=== PATIENT | female | born 1950 | race Caucasian/White ===

== ENCOUNTER → 2019-01-24 09:09 | Outpatient (CLI) | payer MEDICARE, OTHER, SELFPAY ==
--- NOTE | 2019-01-24 | DI.MG.S_ITS ---
BILATERAL DIGITAL SCREENING MAMMOGRAM 3D/2D WITH CAD: 01/24/2019 CLINICAL: Routine screening. Comparison is made to exams dated: 08/12/2017 mammogram, 08/11/2016 mammogram, and 05/06/2015 mammogram - [facility]. The tissue of both breasts is heterogeneously dense. This may lower the sensitivity of mammography. Current study was also evaluated with a Computer Aided Detection (CAD) system. No significant masses, calcifications, or other findings are seen in either breast. Linear scar markers overlie the right breast and left upper chest. There has been no significant interval change. IMPRESSION: NEGATIVE There is no mammographic evidence of malignancy. A 1 year screening mammogram is recommended. This exam was interpreted at Station ID: [id number]. NOTE: For mammograms, a report in lay terms will be sent to the patient. Approximately 15% of breast malignancies will not be visualized mammographically. In the management of a palpable breast mass, a negative mammogram must not discourage biopsy of a clinically suspicious lesion. Electronically Signed By: Gavin Metz M.D. ecl/:01/31/2019 21:14:46 letter sent: Normal Exam ACR BI-RADS Category 1: Negative 3341F
== END ==
PROVIDERS: PCP Family Medicine; Visit Provider Family Medicine
DX: Z12.31 Encounter for screening mammogram for malignant neoplasm of breast (principal)
CPT/HCPCS: 77063; 77067

== ENCOUNTER → 2021-01-27 09:07 | Outpatient (CLI) | payer MEDICARE, OTHER, SELFPAY ==
--- NOTE | 2021-01-27 09:10 | DI.MRI.S_ITS ---
PROCEDURE: MR CERVICAL SPINE WO/W CON INDICATIONS: Cervical pain + PMH bladder cacer w/chemo treatmen TECHNIQUE: Noncontrast sagittal T1 spin echo and T2 fast spin echo, sagittal STIR, foraminal oblique sagittal T2 fast spin echo, axial gradient echo or T2 fast spin echo through the cervical spine. After the administration of contrast, axial and sagittal T1 spin echo with fat saturation through the cervical spine. COMPARISON: None. FINDINGS: Image quality: Suboptimal due to failure of fat suppression in the upper cervical spine to the level of C4 on postcontrast enhanced pulse sequences. Metallic artifact reduction protocols were utilized. Alignment and curvature: Straightening of the normal lordotic curvature. Marrow: Marrow is normal in overall signal, without suspicious enhancement. Multilevel degenerative endplate sclerosis and spurring. Diffuse facet arthropathy. Spinal cord: Visualized spinal cord has normal size and signal. No cerebellar tonsillar herniation. No abnormal intramedullary enhancement. Paraspinous soft tissues: No paravertebral masses or suspicious enhancement. C2-3: No canal narrowing. Mild bilateral foraminal stenosis. C3-4: Minimal canal narrowing. Mild to moderate bilateral foraminal narrowing C4-5: No canal stenosis. No left foraminal narrowing. Mild to moderate right foraminal narrowing with questionable nerve root compression. C5-6: Minimal canal narrowing. Severe right foraminal stenosis with nerve root compression. Mild left foraminal narrowing. C6-7: Mild canal narrowing. No right foraminal stenosis. Moderate left foraminal narrowing with nerve root compression. C7-T1: Mild canal narrowing. No definite foraminal stenosis. IMPRESSION: Straightening of the normal lordotic curvature. Diffuse cervical spondylosis and facet arthropathy, as detailed above by spinal level. No definite suspicious marrow signal change or enhancement to suggest metastatic disease however suboptimal evaluation due to failure of fat suppression artifact in the upper cervical spine. Dictated by: Surjit Murillo M.D. on 01/27/2021 at 11:22 Approved by: Surjit Murillo M.D. on 01/27/2021 at 11:31
== END ==
PROVIDERS: PCP Family Medicine; Referring Provider Physician Assistant; Visit Provider Physician Assistant
DX: M54.2 Cervicalgia (principal); M47.812 Spondylosis without myelopathy or radiculopathy, cervical region; Z85.51 Personal history of malignant neoplasm of bladder
CPT/HCPCS: 72156

== ENCOUNTER → 2021-10-15 12:07 | Outpatient (CLI) | payer MEDICARE, OTHER, SELFPAY ==
[2021-10-15 19:39] LABS: Add Manual Diff / Slide Review NO; Alanine Aminotransferase 22 IU/L (<35); Albumin Globulin Ratio 1.9 (1.0-2.8); Alkaline Phosphatase 51 U/L (38-126); Aspartate Aminotransferase 33 IU/L (14-36); Basophils Absolute Auto 0 /uL (0-100); Basophils Percent Auto 0.9 % (0-2); Bilirubin Total 0.4 mg/dL (0.2-1.3); Blood Urea Nitrogen 24 mg/dL (7-17); Calcium 10.4 mg/dL (8.4-10.2); Carbon Dioxide 21 mmol/L (22-32); Chloride 114 mmol/L (98-107); Cholesterol 306 mg/dL (140-199); Eosinophils Absolute Auto 100 /uL (0-450); Eosinophils Percent Auto 1.7 % (2-4); Estimated Glomerular Filt Rate > 60.0 mL/min (>60); Globulin 2.7 g/dL (1.7-4.1); Glucose 92 mg/dL (80-110); HEMOLYSIS < 15 (0-50); Hemoglobin 13.5 g/dL (12.0-16.0); Lymphocytes Absolute Auto 1600 /uL (1100-4500); Lymphocytes Percent Auto 30.4 % (25-40); Mean Corpuscular Hemoglobin 31.4 PG (26-34); Mean Corpuscular Volume 95.4 fL (80-100); Monocytes Absolute Auto 300 /uL (0-900); Monocytes Percent Auto 6.1 % (3-14); Neutrophils Absolute Auto 3200 /uL (1500-7000); Neutrophils Percent Auto 60.9 % (50-75); Platelet Count 290 X10^3/uL (150-400); Potassium 4.8 mmol/L (3.4-5.1); Red Cell Distribution Width 13.6 % (11.6-14.8); Sodium 146 mmol/L (137-145); Total Protein 7.7 g/dL (6.3-8.2); Triglycerides 76 mg/dL (35-150); White Blood Cell Count 5.2 X10^3/uL (4.5-11.0)
[2021-10-15 19:55] LABS: HDL Cholesterol 135 mg/dL (40-60); LDL Cholesterol Calculated 156 mg/dL (<100)
== END ==
PROVIDERS: PCP Family Medicine; Visit Provider Physician Assistant
DX: Z85.51 Personal history of malignant neoplasm of bladder (principal); E78.5 Hyperlipidemia, unspecified; J44.9 Chronic obstructive pulmonary disease, unspecified; R03.0 Elevated blood-pressure reading, without diagnosis of hypertension; Z12.11 Encounter for screening for malignant neoplasm of colon
CPT/HCPCS: 80053; 80061; 85025

== ENCOUNTER → 2021-10-21 08:02 | Outpatient (CLI) | payer MEDICARE, OTHER, SELFPAY ==
[2021-10-24 11:58] LABS: Fecal Immunochemical Test Negative (Negative)
== END ==
PROVIDERS: PCP Family Medicine; Referring Provider Physician Assistant; Visit Provider Physician Assistant
DX: E78.5 Hyperlipidemia, unspecified (principal); J44.9 Chronic obstructive pulmonary disease, unspecified; R03.0 Elevated blood-pressure reading, without diagnosis of hypertension; Z12.11 Encounter for screening for malignant neoplasm of colon; Z85.51 Personal history of malignant neoplasm of bladder
CPT/HCPCS: 82274

== ENCOUNTER → 2021-10-28 09:30 | Outpatient (CLI) | payer MEDICARE, OTHER, SELFPAY ==
--- NOTE | 2021-10-28 09:34 | DI.CT.S_ITS ---
PROCEDURE: CT CHEST ABD PEL W CON INDICATIONS: Follow up for bladder cancer TECHNIQUE: After the administration of oral and intravenous contrast, axial sections acquired from the supraclavicular neck to the pubic symphysis. Coronal and sagittal reformats were performed. For radiation dose reduction, the following was used: automated exposure control, adjustment of mA and/or kV according to patient size. COMPARISON:[facility], , CT THORAX/ABDOMEN/PELVIS WITH CONTRAST, 12/15/2017, 9:48. FINDINGS: Image quality: Excellent. CHEST: Lower Neck: No enlarged lymph nodes. Thyroid: Within normal limits. Axillae: No enlarged lymph nodes. Chest Wall: Unremarkable. Lungs and Airways: 4 mm left juxafissural nodule on series 2 image 235. This was present on prior exam and slightly less prominent. Pleura: No pneumothorax or pleural effusions. Heart: Heart size is normal. No pericardial effusion. Thoracic Vessels: The aorta and pulmonary arteries demonstrate normal size. Mediastinum and Isabela: No enlarged lymph nodes. Esophagus: No wall thickening. No hiatal hernia. ABDOMEN: Liver: Punctate right hepatic low attenuation focus is unchanged. Steatosis is noted. Gallbladder: Unremarkable. Biliary ducts: Unremarkable. Pancreas: Unremarkable. Spleen: Unremarkable. Adrenal Glands: Unremarkable. Kidneys and Ureters: Right renal cysts are unchanged. Stomach and Bowel: Stomach, small bowel loops, and colon are unremarkable. Peritoneum: No abnormal intraperitoneal fluid. No free air. Ventral Wall: No hernia. Abdominal Nodes: No retroperitoneal or mesenteric adenopathy by size criteria. Vessels: Aorta and inferior vena cava are normal in size. PELVIS: Pelvic Organs: Unremarkable. Bladder: Unremarkable. Pelvic Nodes: No enlarged lymph nodes. Miscellaneous: No inguinal hernias are seen. Bones: Unremarkable. IMPRESSION: 1. Stable interval exam. 2. Left juxtafissural nodule. Although it appears enlarged compared to prior, this likely represents distortion secondary to the fissure and is suspected to be stable. No new nodules are identified. Dictated by: Judy Garibay M.D. on 10/28/2021 at 14:45 Approved by: Judy Garibay M.D. on 10/28/2021 at 16:07
== END ==
PROVIDERS: Referring Provider Physician Assistant; Visit Provider Physician Assistant
DX: Z08 Encounter for follow-up examination after completed treatment for malignant neoplasm (principal); Z85.51 Personal history of malignant neoplasm of bladder; R91.1 Solitary pulmonary nodule; K76.0 Fatty (change of) liver, not elsewhere classified; N28.1 Cyst of kidney, acquired; Z98.890 Other specified postprocedural states
CPT/HCPCS: 71260; 74177

== ENCOUNTER → 2021-12-01 08:06 | Outpatient (CLI) | payer MEDICARE, OTHER, SELFPAY ==
[2021-12-01 20:08] LABS: Alanine Aminotransferase 22 IU/L (<35); Albumin 4.4 g/dL (3.5-5.0); Albumin Globulin Ratio 1.7 (1.0-2.8); Alkaline Phosphatase 56 U/L (38-126); Aspartate Aminotransferase 33 IU/L (14-36); BUN Creatinine Ratio 29.5 (6-22); Bilirubin Total 0.4 mg/dL (0.2-1.3); Blood Urea Nitrogen 23 mg/dL (7-17); Calcium 10.2 mg/dL (8.4-10.2); Carbon Dioxide 24 mmol/L (22-32); Chloride 109 mmol/L (98-107); Cholesterol 280 mg/dL (140-199); Estimated Glomerular Filt Rate > 60.0 mL/min (>60); Globulin 2.6 g/dL (1.7-4.1); Glucose 99 mg/dL (80-110); HEMOLYSIS < 15 (0-50); Sodium 137 mmol/L (137-145); Triglycerides 135 mg/dL (35-150)
[2021-12-01 20:15] LABS: HDL Cholesterol 118 mg/dL (40-60); LDL Cholesterol Calculated 135 mg/dL (<100)
== END ==
PROVIDERS: PCP Physician Assistant; Visit Provider Physician Assistant
DX: E78.5 Hyperlipidemia, unspecified (principal); E87.8 Other disorders of electrolyte and fluid balance, not elsewhere classified
CPT/HCPCS: 80053; 80061

== ENCOUNTER → 2022-09-24 08:40 | Outpatient (CLI) | payer MEDICARE, OTHER, SELFPAY ==
--- NOTE | 2022-09-24 | DI.MG.S_ITS ---
BILATERAL DIGITAL SCREENING MAMMOGRAM 3D/2D WITH CAD: 09/24/2022 CLINICAL: Routine screening. Comparison is made to exams dated: 01/24/2019 [facility] and 08/12/2017 mammogram - [facility]. Both breasts are heterogeneously dense, which may obscure small masses (category c / 51-75% glandular tissue). Current study was also evaluated with a Computer Aided Detection (CAD) system. No significant masses, calcifications, or other findings are seen in either breast. There has been no significant interval change. IMPRESSION: NEGATIVE There is no mammographic evidence of malignancy. A 1 year screening mammogram is recommended. Based on the Tyrer Cuzick model (a risk assessment model) the patient's lifetime risk is 5.5% and her 10 year risk is 4.1%. According to the ACR, ACS, and NCCN guidelines, an annual breast MRI exam along with mammogram is recommended if the patient's lifetime risk is 20% or greater. This exam was interpreted at Station ID: [id number]. NOTE: For mammograms, a report in lay terms will be sent to the patient. Approximately 15% of breast malignancies will not be visualized mammographically. In the management of a palpable breast mass, a negative mammogram must not discourage biopsy of a clinically suspicious lesion. Electronically Signed By: Kwadwo orr/ceci:09/24/2022 15:51:04 letter sent: Normal Exam ACR BI-RADS Category 1: Negative 3341F
== END ==
PROVIDERS: PCP Physician Assistant; Referring Provider Physician Assistant; Visit Provider Physician Assistant
DX: Z12.31 Encounter for screening mammogram for malignant neoplasm of breast (principal)
CPT/HCPCS: 77063; 77067

== ENCOUNTER → 2023-09-29 08:42 | Outpatient (CLI) | payer MEDICARE, OTHER, SELFPAY ==
--- NOTE | 2023-09-29 | DI.MG.S_ITS ---
BILATERAL DIGITAL SCREENING MAMMOGRAM 3D/2D WITH CAD: 09/29/2023 CLINICAL: Routine screening. Comparison is made to exams dated: 09/24/2022 mammogram, 01/24/2019 mammogram - [facility], and 08/12/2017 mammogram - [facility]. There are scattered areas of fibroglandular density in both breasts (category b / 25%-50% glandular tissue). Current study was also evaluated with a Computer Aided Detection (CAD) system. There are benign post operative findings in the right breast. No significant masses, calcifications, or other findings are seen in either breast. There has been no significant interval change. IMPRESSION: BENIGN There is no mammographic evidence of malignancy. A 1 year screening mammogram is recommended. Based on the Tyrer Cuzick model (a risk assessment model) the patient's lifetime risk is 3.4% and her 10 year risk is 2.8%. According to the ACR, ACS, and NCCN guidelines, an annual breast MRI exam along with mammogram is recommended if the patient's lifetime risk is 20% or greater. This exam was interpreted at Station ID: [id number]. NOTE: For mammograms, a report in lay terms will be sent to the patient. Approximately 15% of breast malignancies will not be visualized mammographically. In the management of a palpable breast mass, a negative mammogram must not discourage biopsy of a clinically suspicious lesion. Electronically Signed By: Ashley martins/ceci:09/29/2023 15:29:41 letter sent: Normal Exam ACR BI-RADS Category 2: Benign Finding(s) 3342F
== END ==
PROVIDERS: PCP Physician Assistant; Referring Provider Physician Assistant; Visit Provider Physician Assistant
DX: Z12.31 Encounter for screening mammogram for malignant neoplasm of breast (principal)
CPT/HCPCS: 77063; 77067

== ENCOUNTER → 2023-11-10 13:25 | Outpatient (CLI) | payer MEDICARE, OTHER, SELFPAY ==
[2023-11-10 14:20] LABS: Creatine Kinase 43 U/L (30-135)
== END ==
PROVIDERS: PCP Physician Assistant; Referring Provider Nurse Practitioner Adult Health; Visit Provider Nurse Practitioner Adult Health
DX: Z85.51 Personal history of malignant neoplasm of bladder (principal)
CPT/HCPCS: 36415; 82550

== ENCOUNTER → 2023-11-12 10:50 | Outpatient (CLI) | payer MEDICARE, OTHER, SELFPAY ==
--- NOTE | 2023-11-12 10:51 | DI.CT.S_ITS ---
PROCEDURE: CT CHEST ABD PEL W CON INDICATIONS: bladder cancer surveillance TECHNIQUE: After the administration of oral and intravenous contrast, axial sections acquired from the supraclavicular neck to the pubic symphysis. Coronal and sagittal reformats were performed. For radiation dose reduction, the following was used: automated exposure control, adjustment of mA and/or kV according to patient size. COMPARISON: [facility], [facility], CT THORAX/ABDOMEN/PELVIS WITH CONTRAST, 12/15/2017, 9:48. [facility], CT, CT CHEST ABD PEL W CON, 10/28/2021, 10:24. FINDINGS: Image quality: Excellent. CHEST: Lower Neck: No enlarged lymph nodes. Thyroid: Within normal limits. Axillae: No enlarged lymph nodes. Chest Wall: No suspicious lesion. Lungs and Airways: Moderate to severe emphysematous change. Mild bronchiectasis. Central airways are clear. No new or enlarging pulmonary nodules. Left lower lobe pulmonary nodule measuring 0.5 cm, (3/227), not significantly changed. No mass. Pleura: No pneumothorax or pleural effusions. Heart: Heart size is normal. No pericardial effusion. Thoracic Vessels: The aorta and pulmonary arteries demonstrate normal size. Mediastinum and Isabela: No enlarged lymph nodes. Esophagus: No wall thickening. No hiatal hernia. ABDOMEN: Liver: No solid mass. Probable small cyst or hemangioma in the right liver is unchanged. Gallbladder: No radiopaque gallstones or wall thickening. Biliary ducts: No biliary dilation. Pancreas: No ductal dilation. Spleen: Size is within normal limits. Adrenal Glands: No adrenal nodules. Kidneys and Ureters: No hydronephrosis. No solid mass. No complex renal cystic lesion which requires follow up. Stomach and Bowel: Normal colonic caliber, without significant wall thickening. Diverticulosis. The appendix is not identified. Multiple clips. Peritoneum: No abnormal intraperitoneal fluid. No free air. Ventral Wall: No hernia. Abdominal Nodes: No retroperitoneal or mesenteric adenopathy by size criteria. Vessels: Aorta and inferior vena cava are normal in size. PELVIS: Pelvic Organs: Uterus is absent. Bladder: Absent. Pelvic Nodes: No enlarged lymph nodes. Miscellaneous: No inguinal hernias are seen. Bones: No suspicious osseous lesion. IMPRESSION: 1. No new or enlarging pulmonary nodules. 2. No mass or adenopathy. No free fluid. Dictated by: French Medina M.D. on 11/12/2023 at 14:58 Approved by: French Medina M.D. on 11/12/2023 at 15:15
[2023-11-12 11:24] LABS: Estimated Glomerular Filt Rate > 60 mL/min (>60)
== END ==
PROVIDERS: Radiology Diagnostic Radiology; PCP Physician Assistant; Referring Provider Nurse Practitioner Adult Health; Visit Provider Nurse Practitioner Adult Health
DX: Z85.51 Personal history of malignant neoplasm of bladder (principal); Z08 Encounter for follow-up examination after completed treatment for malignant neoplasm; R91.1 Solitary pulmonary nodule
CPT/HCPCS: 36415; 71260; 74177; 82565; Q9967

== ENCOUNTER → 2024-11-06 08:33 | Outpatient (CLI) | payer MEDICARE, OTHER, SELFPAY ==
--- NOTE | 2024-11-06 08:34 | DI.MG.S_ITS ---
BILATERAL DIGITAL SCREENING MAMMOGRAM 3D/2D WITH CAD: 11/06/2024 CLINICAL: Routine screening. Comparison is made to exams dated: 09/29/2023 mammogram, 09/24/2022 mammogram, and 01/24/2019 mammogram - [facility]. There are scattered areas of fibroglandular density (category b / 25%-50% glandular tissue). Current study was also evaluated with a Computer Aided Detection (CAD) system. There are benign post operative findings in the right breast. No significant masses, calcifications, or other findings are seen in either breast. There has been no significant interval change. IMPRESSION: BENIGN There is no mammographic evidence of malignancy. A 1 year screening mammogram is recommended. Based on the Tyrer Cuzick model (a risk assessment model) the patient's lifetime risk is 2.9% and her 10 year risk is 2.9%. According to the ACR, ACS, and NCCN guidelines, an annual breast MRI exam along with mammogram is recommended if the patient's lifetime risk is 20% or greater. This exam was interpreted at Station ID: [id number]. NOTE: For mammograms, a report in lay terms will be sent to the patient. Approximately 15% of breast malignancies will not be visualized mammographically. In the management of a palpable breast mass, a negative mammogram must not discourage biopsy of a clinically suspicious lesion. Electronically Signed By: Rodríguez sim/ceci:11/06/2024 17:07:14 letter sent: Normal Exam ACR BI-RADS Category 2: Benign
== END ==
LOC: MAMMO 08:34
PROVIDERS: PCP Physician Assistant; Referring Provider Physician Assistant; Visit Provider Physician Assistant
DX: Z12.31 Encounter for screening mammogram for malignant neoplasm of breast (principal)
CPT/HCPCS: 77063; 77067

== ENCOUNTER 2025-01-24 10:38 | Emergency (ER) | payer MEDICARE, OTHER, SELFPAY ==
[2025-01-24 10:55] VITALS: BP 186/83; PULSE 72; RESP 16; TEMP 36.7; O2SAT 99; BMI 16.6
--- NOTE | 2025-01-24 11:03 | DI.RAD.S_ITS ---
PROCEDURE: XR ELBOW LT MIN 3V INDICATIONS: fall 01/12 , increasing pain TECHNIQUE: 3 views of the elbow were acquired. COMPARISON: None. FINDINGS: Bones: No fractures or dislocations. No suspicious bony lesions. Soft tissues: No elbow joint effusion. No suspicious soft tissue calcifications. IMPRESSION: No acute elbow fracture or dislocation. No significant joint effusion. Dictated by: Carlton Harvey M.D. on 01/24/2025 at 11:39 Approved by: Carlton Harvey M.D. on 01/24/2025 at 11:40
--- NOTE | 2025-01-24 11:03 | DI.RAD.S_ITS ---
PROCEDURE: XR SHOULDER LT MIN 2V INDICATIONS: fall 01/12 , increasing pain TECHNIQUE: 3 views of the shoulder were acquired. COMPARISON: [facility], CR, XR SHOULDER 2+ VIEWS LEFT, 01/11/2025, 22:38. [facility] CR, XR SHOULDER RT MIN 2V, 05/12/2023, 15:20. FINDINGS: Bones: As present on the previous images from 2 weeks ago, there is a comminuted head and neck fracture of the proximal left humerus. Alignment appears grossly unchanged. Soft tissues: No suspicious soft tissue calcifications. IMPRESSION: Unchanged appearance of comminuted head and neck fracture of the proximal left humerus. Dictated by: Cr Blanco M.D. on 01/24/2025 at 11:55 Approved by: Cr Blanco M.D. on 01/24/2025 at 11:56
--- NOTE | 2025-01-24 13:47 | ED_ITS ---
HPI - Extremity Injury (Upper) <Lourdes Luis PA-C - Last Filed: 01/24/25 14:28> General Chief Complaint: Extremity Injury, Upper Stated Complaint: Neck pain , going down her left arm Time Seen by Provider: 01/24/25 13:40 Source: patient Mode of arrival: Family Vehicle History of Present Illness HPI narrative: Ms. Kimberly Dover is a pleasant 74-year-old female who presents to the emergency department for persistent left shoulder pain after a left shoulder fracture that occurred 01/11/2025. Patient states she had a fall and fractured her left proximal humerus on 01/11/2025, was seen on [facility] and given a sling and advised to follow up with Orthopedics. Reports that she has not yet able to follow up with Orthopedics however she presents today due to persistent pain of the left shoulder, left elbow, and sensation of tingling in the hand occasionally. She has not wearing the sling at this time but reports that she has been wearing the sling. She is taking ibuprofen and Tylenol for pain, she felt nauseous when she took hydrocodone so she has not been taking that. She denies any new injuries, no difficulty with range of motion or strength of the left hand. Related Data Previous Rx's Medication Instructions Recorded estradiol 0.01% (0.1 mg/gram) See Rx Instructions .Route 06/03/23 vaginal cream .COMPLEX #42.5 grams trazodone 50 mg tablet 25 - 50 mg (0.5 - 1 x 50 mg) PO 02/07/24 ONCE PM PRN for insomnia #90 tabs lidocaine 5 % topical patch 1 patch topical DAILY #15 ea 01/24/25 (Lidoderm) ondansetron 4 mg disintegrating 4 mg PO Q8H PRN nausea and 01/24/25 tablet vomiting #14 tabs Allergies Allergy/AdvReac Type Severity Reaction Status Date / Time Penicillins [PENICILLINS] Allergy Intermediate hives Verified 01/24/25 10:54 Sulfa (Sulfonamide Allergy Unknown Verified 01/24/25 10:54 Antibiotics) [SULFA (SULFONAMIDE ANTIBIOTICS)] Review of Systems <Lourdes Luis PA-C - Last Filed: 01/24/25 14:28> Review of Systems ROS Unobtainable: All systems reviewed & are unremarkable except as noted in HPI and below Patient History <Lourdes Luis PA-C - Last Filed: 01/24/25 14:28> Medical History Retained suture 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 Well-developed patient, in no acute distress. HEAD: Atraumatic. Normocephalic. NECK: Trachea midline. Cervical ROM intact. No midline cervical tenderness. CARDIOVASCULAR: Regular rate RESPIRATORY: Nonlabored respirations. Speaking in clear, full sentences. EXTREMITIES: Tenderness to palpation of left shoulder, ecchymosis of dorsal left hand. Strong bilateral 2+ radial pulses. Sensation intact to light touch and strength intact in the distribution of the median, ulnar, radial nerves bilaterally. Limited abduction of left shoulder secondary to pain. NEURO: AOx3. Clear speech. SKIN: No rash or erythema of visible areas, There is ecchymosis of the left dorsal hand. Initial Vital Signs Initial Vital Signs: Vital Signs Temperature 98.0 F 01/24/25 10:55 Pulse Rate 72 01/24/25 10:55 Respiratory Rate 16 01/24/25 10:55 Blood Pressure 186/83 H 01/24/25 10:55 Pulse Oximetry 99 01/24/25 10:55 Oxygen Delivery Method Room Air 01/24/25 10:55 <Shanelle Forman DO - Last Filed: 01/24/25 18:38> Initial Vital Signs Initial Vital Signs: Vital Signs Temperature 98.0 F 01/24/25 10:55 Pulse Rate 72 01/24/25 10:55 Respiratory Rate 16 01/24/25 10:55 Blood Pressure 186/83 H 01/24/25 10:55 Pulse Oximetry 99 01/24/25 10:55 Oxygen Delivery Method Room Air 01/24/25 10:55 Course <Lourdes Luis PA-C - Last Filed: 01/24/25 14:28> Orders Ordered: ED Orders 01/24/25 11:03 XR elbow LT min 3V Stat XR shoulder LT min 2V Stat Vital Signs Vital signs: Vital Signs - 8 hr 01/24/25 10:55 01/24/25 14:10 01/24/25 14:14 Temperature 98.0 F 98 F Pulse Rate 72 72 72 Respiratory Rate 16 16 14 Blood Pressure 186/83 H 138/72 138/72 Pulse Oximetry 99 98 98 Oxygen Delivery Method Room Air Room Air Room Air <Shanelle Forman DO - Last Filed: 01/24/25 18:38> Orders Ordered: ED Orders 01/24/25 11:03 XR elbow LT min 3V Stat XR shoulder LT min 2V Stat Vital Signs Vital signs: Vital Signs - 8 hr 01/24/25 10:55 01/24/25 14:10 01/24/25 14:14 Temperature 98.0 F 98 F Pulse Rate 72 72 72 Respiratory Rate 16 16 14 Blood Pressure 186/83 H 138/72 138/72 Pulse Oximetry 99 98 98 Oxygen Delivery Method Room Air Room Air Room Air MDM - Extremity Injury (Upper) <Lourdes Luis PA-C - Last Filed: 01/24/25 14:28> Medical Records Attestation: I reviewed the patient's medical records. Imaging Data Left Shoulder X-Ray: Radiologist's Impression: PROCEDURE: XR SHOULDER LT MIN 2V INDICATIONS: fall 01/12 , increasing pain TECHNIQUE: 3 views of the shoulder were acquired. COMPARISON: [facility], CR, XR SHOULDER 2+ VIEWS LEFT, 01/11/2025, 22:38. [facility] CR, XR SHOULDER RT MIN 2V, 05/12/2023, 15:20. FINDINGS: Bones: As present on the previous images from 2 weeks ago, there is a comminuted head and neck fracture of the proximal left humerus. Alignment appears grossly unchanged. Soft tissues: No suspicious soft tissue calcifications. IMPRESSION: Unchanged appearance of comminuted head and neck fracture of the proximal left humerus. Left Elbow X-Ray: Radiologist's Impression: PROCEDURE: XR ELBOW LT MIN 3V INDICATIONS: fall 01/12 , increasing pain TECHNIQUE: 3 views of the elbow were acquired. COMPARISON: None. FINDINGS: Bones: No fractures or dislocations. No suspicious bony lesions. Soft tissues: No elbow joint effusion. No suspicious soft tissue calcifications. IMPRESSION: No acute elbow fracture or dislocation. No significant joint effusion. MDM Narrative Medical decision making narrative: 74-year-old female who presents to the emergency department for persistent left shoulder pain after a left shoulder fracture that occurred 01/11/2025. Differential diagnosis includes but is not limited to left shoulder fracture, cervical strain, brachial plexus injury, etc. physical exam patient is in no acute distress, nontoxic appearing, vital signs within normal limits. She does have ecchymosis of the left dorsal hand which she reports is improving from the injury. She continues to have pain and occasional tingling of the left hand, and pain is also starting to go up the neck which she believes is from the sling pulling on her neck. X-ray of the left shoulder and elbow were obtained in triage revealing an unchanged appearance of her proximal left humerus fracture, and no fracture of the left elbow. Bilateral upper extremities are neurovascularly intact with strong pulses and strength and sensation intact of the median, ulnar, radial nerve distribution. I suspect patient's symptoms are related to her fracture and I stressed the importance of her continuing to wear her sling and to follow up with Orthopedics. I did offer to provide her with a new/ different sling however she is requesting immediate [place] [facility] [place] [facility] She was prescribed Zofran to take if needed for her home hydrocodone pain medication, in addition to Lidoderm. ED return precautions discussed. She is stable for discharge home, provided with orthopedic follow up. Discharge Plan Departure Patient Disposition: Home Clinical Impression: Closed left humeral fracture Qualifiers: Encounter type: initial encounter Humerus Location: proximal Fracture morphology: other fracture Fracture alignment: nondisplaced Qualified Code(s): S42.295A - Other nondisplaced fracture of upper end of left humerus, initial encounter for closed fracture Instructions: DI for Shoulder Fracture Activity Restrictions/Additional Instructions: Thank you for coming to the emergency department. Today you were evaluated for worsening pain after fracturing her left shoulder. Repeat x-rays were performed which revealed normal left elbow and left shoulder revealed Unchanged appearance of comminuted head and neck fracture of the proximal left humerus. it is very important to continue wearing a left arm sling as much as possible and follow up with [facility] for further evaluation. You can call to schedule an appointment at [phone]. Please take Ibuprofen (Motrin/Advil) or Acetaminophen (Tylenol) for pain. These are available over the counter. You may take Ibuprofen 600 mg every 8 hours with food for pain. You may also take Acetaminophen 650 mg every 4-6 hours for pain. Do not exceed 3000 mg of Tylenol a day as this can cause liver damage. Do not drink alcohol with either of these medications. Please use RICE therapy for your pain in addition to ibuprofen/acetaminophen. Rest the painful area. Ice the area of pain/swelling for at least 15 minutes, 4x a day. Compress the area of swelling using a brace, wrap, or splint if applied. Elevate the painful or swollen extremity by supporting it above the level of the heart with pillows when sitting or laying. I have prescribed you nausea medicine if needed to use with your prior prescription for hydrocodone. I have also prescribed lidocaine patches that you can apply directly under the strap of the sling to help with sling pain. Please follow up with your primary care doctor within the next 2-3 days for ER follow-up. (If you do not have a PCP you can call [phone]. to schedule an appointment with an [facility] Primary Care Provider) IF YOU DEVELOP ANY NEW OR WORSENING SYMPTOMS, RETURN TO THE ER! Please read the attached instructions, they highlight more specific treatments and interventions for you at home. Thank you for letting me participate in your care, Lourdes Luis PA-C Prescriptions: New ondansetron 4 mg tablet,disintegrating 4 mg PO Q8H PRN (Reason: nausea and vomiting) Qty: 14 0RF lidocaine [Lidoderm] 5 % adhesive patch,medicated 1 patch topical DAILY Qty: 15 0RF Rx Instructions: leave on most painful area for up to 12 hrs No Action trazodone 50 mg tablet 25 - 50 mg PO ONCE PM PRN (Reason: for insomnia) Qty: 90 3RF estradiol 0.01 % (0.1 mg/gram) cream See Rx Instructions .ROUTE .COMPLEX Qty: 42.5 1RF Rx Instructions: topically 0.5gm to vulvar tissue; 2 x weekly Referrals: Divya Vargas PA-C [Primary Care Provider] - Stand Alone Forms: Patient Portal/API/Survey ED Sign-out <Shanelle Forman DO - Last Filed: 01/24/25 18:38> Cosign ED Attending Cosignature Attestation: I was available for consultation.
[2025-01-24 14:10] VITALS: BP 138/72; PULSE 72; RESP 16; TEMP 36.6; O2SAT 98
--- NOTE | 2025-01-24 14:12 | PC.NURSE ---
Patient was assessed by the provider and cleared for Discharge. The patient had made several comments about needing to leave to catch a ferry at 1410. She made a statement about sleeping in her car if she misses it.
[2025-01-24 14:14] VITALS: BP 138/72; PULSE 72; RESP 14; O2SAT 98
== END 2025-01-24 14:21 | disposition home or self-care (01) ==
PROVIDERS: Emergency Provider Physician Assistant; PCP Physician Assistant
DX: S42.212A Unspecified displaced fracture of surgical neck of left humerus, initial encounter for closed fracture (principal); S42.292A Other displaced fracture of upper end of left humerus, initial encounter for closed fracture; X58.XXXA Exposure to other specified factors, initial encounter
CPT/HCPCS: 73030; 73080; 99282; 99283

== ENCOUNTER → 2025-03-03 09:20 | Outpatient (CLI) | payer MEDICARE, OTHER, SELFPAY ==
--- NOTE | 2025-03-03 09:22 | DI.MRI.S_ITS ---
PROCEDURE: MR CERVICAL SPINE WO CON INDICATIONS: worsening cervical pain w/ radiculopathy. JUAN report requested TECHNIQUE: Noncontrast sagittal T1 spin echo and T2 fast spin echo, sagittal STIR, foraminal oblique sagittal T2 fast spin echo, and axial gradient echo or T2 fast spin echo through the cervical spine. COMPARISON: None. FINDINGS: Image quality: Excellent. Alignment and Curvature: Straightening Bone Marrow: Marrow demonstrates normal overall signal. Spinal Cord: Visualized spinal cord has normal size and signal. No cerebellar tonsillar herniation. Paraspinous Soft Tissues: No paravertebral masses. Prevertebral soft tissues are normal in thickness. At the disc levels, mild degenerative changes noted in the upper cervical spine. At C5-6, hypertrophic uncovertebral joints results in severe right foraminal stenosis. 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 on 03/03/2025 at 10:21
== END ==
PROVIDERS: PCP Physician Assistant; Referring Provider Physician Assistant; Visit Provider Physician Assistant
DX: M47.812 Spondylosis without myelopathy or radiculopathy, cervical region (principal); M48.02 Spinal stenosis, cervical region
CPT/HCPCS: 72141

== ENCOUNTER 2025-08-15 11:14 | Emergency (ER) | payer MEDICARE, OTHER, SELFPAY ==
[2025-08-15 11:29] VITALS: BP 133/63; PULSE 65; RESP 16; TEMP 36.8; O2SAT 96; BMI 15.3
--- NOTE | 2025-08-15 11:35 | ED_ITS ---
<Statement entered by Ayush Ortiz MD - 08/15/25 17:49> I was present in the department and available for consultation at the time the patient was seen HPI - Extremity Problem General Chief complaint: Extremity Problem,Nontraumatic Stated complaint: right Calf pain 30 days Time Seen by Provider: 08/15/25 11:35 Source: patient Mode of arrival: Ambulatory History of Present Illness HPI Narrative: Ms. Kimberly Dover is a very pleasant 74-year-old female, relatively healthy, with a remote history of hyperlipidemia, vulvar neoplasm who presents to the emergency department for acute on chronic right lower extremity pain x3 weeks. Patient states she had a fall about 1 year ago which resulted in a large hematoma of the right anterior lateral lower extremity. She has also had a subtle aching pain of this area since then however 3 weeks ago she started developing increasing pain in the right lateral lower extremity region specifically with exertion, hiking, exercise. She does not recall a specific injury. This area is not tender to touch. No open wounds. She does have significant bilateral lower extremity varicosities which are chronic and unchanged for her. She denies any numbness tingling or weakness, color change, cold limbs or inability to walk. Denies chest pain, shortness of breath, abdominal pain, nausea, vomiting, diarrhea, fevers, chills, flu-like symptoms. Denies history of VTE or blood thinner use. Related Data Previous Rx's ?Medication ?Instructions ?Recorded estradiol 0.01% (0.1 mg/gram) See Rx Instructions .Rou te 06/03/23 vaginal cream .COMPLEX #42.5 grams lidocaine 5 % topical patch 1 patch topical DAILY #15 ea 01/24/25 (Lidoderm) ondansetron 4 mg disintegrating 4 mg PO Q8H PRN nausea and 01/24/25 tablet vomiting #14 tabs trazodone 50 mg tablet 25 - 50 mg (0.5 - 1 x 50 mg) PO 02/07/25 ONCE PM PRN for insomnia #90 tabs Allergies Allergy/AdvReac Type Severity Reaction Status Date / Time Penicillins (PENICILLINS) Allergy Intermediate hives Verified 08/15/25 11:30 Sulfa (Sulfonamide Allergy Unknown Verified 08/15/25 11:30 Antibiotics) (SULFA (SULFONAMIDE ANTIBIOTICS)) Review of Systems Review of Systems ROS Unobtainable: All systems reviewed & are unremarkable except as noted in HPI and below Patient History Medical History Retained suture 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 Thin patient, in no acute distress. HEAD: Atraumatic. Normocephalic. EYES: No scleral icterus. No injection or drainage. NECK: Trachea midline. Cervical ROM intact. CARDIOVASCULAR: Regular rate RESPIRATORY: ?Nonlabored respirations. ?Speaking in clear, full sentences. EXTREMITIES: Lower extremities completely exposed. Brisk capillary refill on all toes, 2+ DP and PT pulses bilaterally, legs are warm and well perfused. Patient has an area of tenderness to palpation of the right anterior lateral lower extremity with no edema or skin changes in this area. She does have significant venous varicosities of the bilateral lower extremities with hemosiderin on anterior shins bilaterally. 5/5 bilateral plantar and dorsiflexion strength, sensation intact to light touch in the dorsal and plantar aspect of the feet, and no tenderness or swelling of bilateral calves. Bilateral Achilles tendons palpable. NEURO: AOx3. ?Clear speech. ?Moves all 4 extremities appropriately. SKIN: Warm, dry, no rashes or wounds Initial Vital Signs Initial Vital Signs: Vital Signs Temperature 98.3 F 08/15/25 11:29 Pulse Rate 65 08/15/25 11:29 Respiratory Rate 16 08/15/25 11:29 Blood Pressure 133/63 08/15/25 11:29 Pulse Oximetry 96 08/15/25 11:29 Oxygen Delivery Method Room Air 08/15/25 11:29 Course Orders Ordered: ED Orders 08/15/25 11:39 US [facility] venous low extrem rt Stat 08/15/25 11:44 XR tibia fibula RT 2V Stat Vital Signs Vital signs: Vital Signs - 8 hr 08/15/25 11:29 Temperature 98.3 F Pulse Rate 65 Respiratory Rate 16 Blood Pressure 133/63 Pulse Oximetry 96 Oxygen Delivery Method Room Air MDM - Extremity (Nontraumatic) Medical Records Attestation: I reviewed the patient's medical records. Imaging Data Right Tib/Fib XR: Radiologist's Impression: PROCEDURE: XR TIBIA FUBULA RT 2V INDICATIONS: Right lateral anterior curry tenderness, hx fall TECHNIQUE: 2 views of the tibia and fibula were acquired. COMPARISON: [facility], [facility] VENOUS LOW EXTREM RT, 08/15/2025, 11:52. FINDINGS: Bones: No fractures or dislocations. No suspicious bony lesions. Age- appropriate bony degenerative changes are seen. Soft tissues: No suspicious soft tissue calcifications or masses. IMPRESSION: No acute bony abnormality is detected. Dictated by: Ino Leonard M.D. on 08/15/2025 at 11:43 Approved by: Ino Leonard M.D. on 08/15/2025 at 11:44 RLE Venous US: Radiologist's Impression: PROCEDURE: US [facility] VENOUS LOW EXTREM RT INDICATIONS: right calf pain TECHNIQUE: Real-time imaging, as well as color and pulse Doppler interrogation, were performed of the lower extremity deep veins from the inguinal ligament to the popliteal fossa , with documentation of the visualized calf veins. COMPARISON: None. FINDINGS: The common femoral, femoral, popliteal, and the visualized calf veins are normally compressible, and free of intraluminal thrombus. Color and pulse Doppler demonstrate normal phasic intraluminal flow. There is normal augmentation response to distal compression maneuver. IMPRESSION: No findings of lower extremity deep venous thrombosis. Dictated by: Ino Leonard M.D. on 08/15/2025 at 11:43 Approved by: Ino Leonard M.D. on 08/15/2025 at 11:43 MDM Narrative Medical decision making narrative: 74-year-old female, relatively healthy, with a remote history of hyperlipidemia, vulvar neoplasm who presents to the emergency department for acute on chronic right lower extremity pain x3 weeks. Differential diagnosis includes but is not limited to calf strain, contusion, subacute fracture, DVT, venous insufficiency, peripheral vascular disease, peripheral arterial disease, claudication, etc. On exam the patient is in no acute distress, nontoxic appearing, all vital signs within normal limits. She has not area of tenderness on the right anterior lateral lower leg with no overlying skin changes concerning for cellulitis or infection. Lower extremities are neurovascularly intact with palpable pulses, brisk cap refill, warmth, sensation intact to light touch and good flexion and extension strength. Given chronicity of patient's pain, significant varicosities, an acute worsening of pain she is concerned for DVT, we will obtain peripheral venous ultrasound however we will also obtain x-ray tib-fib to rule out subacute fracture from fall. Right lower extremity venous ultrasound reveals no findings of lower extremity deep venous thrombosis, x-ray reveals no acute bony abnormality, there is an age-appropriate bony degenerative changes. Printed discussed all imaging results patient her . Discussed supportive care, rice therapy, compression socks, follow up with PCP for further evaluation. Discussed ED return precautions. Patient and verbalized understanding of all inf ormation agreeable with the plan, she is ambulatory and stable for discharge home. Discharge Plan Departure Patient Disposition: Home Clinical Impression: Lower extremity pain, right Instructions: DI for Leg Pain Activity Restrictions/Additional Instructions: Dear Ms. Barnard, Thank you for coming to the emergency department. Today you were evaluated of pain in the right lower leg/calf. Ultrasound revealed no blood clot an x-ray revealed some degenerative changes but no broken bones. As we discussed it is possible that this pain is due to a muscular source or a vascular source and I would like you to follow up with your primary care doctor. In the meantime please use compression socks whenever you will be upright for long period of time. Please return to the emergency department if you develop any new or worsening symptoms, significant swelling of the leg, redness, fevers or any other concerns. Please use RICE therapy for your pain in addition to ibuprofen/acetaminophen. Rest the painful area. Ice the area of pain/swelling for at least 15 minutes, 4x a day. Compress the area of swelling using a brace, wrap, or splint if applied. Elevate the painful or swollen extremity by supporting it above the level of the heart with pillows when sitting or laying. Please follow up with your primary care doctor within the next 2-3 days for ER follow-up. (If you do not have a PCP you can call [phone]. ?to schedule an appointment with an [facility] Primary Care Provider) IF YOU DEVELOP ANY NEW OR WORSENING SYMPTOMS, RETURN TO THE ER! Please read the attached instructions, they highlight more specific treatments and interventions for you at home. Thank you for letting me participate in your care, Lourdes Luis PA-C Prescriptions: No Action trazodone 50 mg tablet 25 - 50 mg PO ONCE PM PRN (Reason: for insomnia) Qty: 90 1RF ondansetron 4 mg tablet,disintegrating 4 mg PO Q8H PRN (Reason: nausea and vomiting) Qty: 14 0RF lidocaine [Lidoderm] 5 % adhesive patch,medicated 1 patch topical DAILY Qty: 15 0RF Rx Instructions: leave on most painful area for up to 12 hrs estradiol 0.01 % (0.1 mg/gram) cream See Rx Instructions .ROUTE .COMPLEX Qty: 42.5 1RF Rx Instructions: topically 0.5gm to vulvar tissue; 2 x weekly Referrals: Divya Vargas PA-C [Primary Care Provider, Medical] Stand Alone Forms: Patient Portal/API
--- NOTE | 2025-08-15 11:39 | DI.US.S_ITS ---
PROCEDURE: US PERIPH VENOUS LOW EXTREM RT INDICATIONS: right calf pain TECHNIQUE: Real-time imaging, as well as color and pulse Doppler interrogation, were performed of the lower extremity deep veins from the inguinal ligament to the popliteal fossa, with documentation of the visualized calf veins. COMPARISON: None. FINDINGS: The common femoral, femoral, popliteal, and the visualized calf veins are normally compressible, and free of intraluminal thrombus. Color and pulse Doppler demonstrate normal phasic intraluminal flow. There is normal augmentation response to distal compression maneuver. IMPRESSION: No findings of lower extremity deep venous thrombosis. Dictated by: Ino Leonard M.D. on 08/15/2025 at 11:43 Approved by: Ino Leonard M.D. on 08/15/2025 at 11:43
--- NOTE | 2025-08-15 11:44 | DI.RAD.S_ITS ---
PROCEDURE: XR TIBIA FUBULA RT 2V INDICATIONS: Right lateral anterior curry tenderness, hx fall TECHNIQUE: 2 views of the tibia and fibula were acquired. COMPARISON: [facility], , PERIP VENOUS LOW EXTREM RT, 08/15/2025, 11:52. FINDINGS: Bones: No fractures or dislocations. No suspicious bony lesions. Age- appropriate bony degenerative changes are seen. Soft tissues: No suspicious soft tissue calcifications or masses. IMPRESSION: No acute bony abnormality is detected. Dictated by: Ino Leonard M.D. on 08/15/2025 at 11:43 Approved by: Ino Leonard M.D. on 08/15/2025 at 11:44
[2025-08-15 14:27] VITALS: BP 131/62; PULSE 63; RESP 16; O2SAT 97
== END 2025-08-15 13:44 | disposition home or self-care (01) ==
PROVIDERS: Emergency Provider Physician Assistant; PCP Physician Assistant
DX: M79.604 Pain in right leg (principal); G89.29 Other chronic pain
CPT/HCPCS: 73590; 93971; 99281; 99283

== ENCOUNTER → 2025-10-22 11:17 | Outpatient (CLI) | payer MEDICARE, OTHER, SELFPAY ==
--- NOTE | 2025-10-22 11:21 | DI.CT.S_ITS ---
PROCEDURE: CT CHEST ABD PEL W CON INDICATIONS: surveillance s/p bladder cancer TECHNIQUE: After the administration of intravenous contrast, 5 mm thick sections acquired from the lung apices to the symphysis. 5 mm coronal and sagittal reformats were performed, with additional 7 mm MIP reformats through the lungs. For radiation dose reduction, the following was used: automated exposure control, adjustment of mA and/or kV according to patient size. COMPARISON: [facility], CT, CT CHEST ABD PEL W CON, 11/12/2023, 11:47. FINDINGS: Image quality: Excellent. CHEST: Lower Neck: No enlarged lymph nodes. Thyroid: No thyroid nodules which require sonographic follow up, per consensus guidelines. Axillae: No enlarged lymph nodes. Chest Wall: Unremarkable. Lungs and Pleura: No pneumothorax or pleural effusions. Stable pulmonary micro nodules, including the left lower lobe nodule measuring 4-5 mm (series 5, image 230). Moderate centrilobular emphysema. Heart: Heart size is normal. No pericardial effusion. 2 vessel coronary artery calcifications. Thoracic Vessels: The aorta and pulmonary arteries demonstrate normal size. Mediastinum and [place]: No enlarged lymph nodes. Esophagus: No wall thickening. No hiatal hernia. Oral contrast within the esophagus, presumably reflux or esophageal dysmotility. ABDOMEN: Liver: No solid mass. Stable subcentimeter hypoattenuating lesion in the lateral right lobe, too small to characterize by CT (series 2, image 106). Gallbladder: No radiopaque gallstones or wall thickening. Biliary ducts: No biliary dilation. Pancreas: No ductal dilation. Spleen: Size is within normal limits. Adrenal Glands: No adrenal nodules. Kidneys and Ureters: No hydronephrosis. No solid mass. No complex renal cystic lesion which requires follow up. Stomach and Bowel: Normal colonic caliber, without significant wall thickening. Appendectomy. Peritoneum: No abnormal intraperitoneal fluid. No free air. Ventral Wall: No significant ventral hernia. Abdominal Nodes: No retroperitoneal or mesenteric adenopathy by size criteria. Vessels: Aorta and inferior vena cava are normal in size. Moderate atherosclerotic disease of the aorta and common iliac arteries. PELVIS: Pelvic Organs: Hysterectomy. Bladder: Cholecystectomy. Pelvic Nodes: No enlarged lymph nodes. Miscellaneous: No inguinal hernias are seen. Bones: No aggressive osseous abnormality. IMPRESSION: Cystectomy, without measurable disease. Dictated by: Familia Gutierrez M.D. on 10/22/2025 at 16:07 Approved by: Familia Gutierrez M.D. on 10/22/2025 at 16:14
[2025-10-22 12:13] LABS: Estimated Glomerular Filt Rate > 60 mL/min (>60)
== END ==
LOC: CT 11:20
PROVIDERS: PCP Physician Assistant; Referring Provider Nurse Practitioner Adult Health; Visit Provider Nurse Practitioner Adult Health
DX: R91.8 Other nonspecific abnormal finding of lung field (principal); K76.9 Liver disease, unspecified; Z85.51 Personal history of malignant neoplasm of bladder; Z90.6 Acquired absence of other parts of urinary tract; Z90.49 Acquired absence of other specified parts of digestive tract
CPT/HCPCS: 36415; 71260; 74177; 82565; Q9967

== ENCOUNTER → 2025-11-19 08:56 | Outpatient (CLI) | payer MEDICARE, OTHER, SELFPAY ==
--- NOTE | 2025-11-19 08:57 | DI.MG.S_ITS ---
MM screening mammo BI: 11/19/2025. BI-RADS: 1 CLINICAL: 75-year old female for bilateral screening mammogram. Tyrer-Cuzick lifetime risk of 1.9%. No personal or first-degree family history of breast cancer. The patient had a prior right breast biopsy. PRIOR EXAMS 11/06/2024, 09/29/2023, 09/24/2022, 01/24/2019. MAMMOGRAPHY TECHNIQUE: 2D and 3D (tomosynthesis) digital mammographic views obtained, with additional images as needed for full coverage. Current study was also evaluated with a Computer Aided Detection (CAD) system. DENSITY C. The breasts are heterogeneously dense, which may obscure small masses. MAMMOGRAPHY FINDINGS Bilateral: No suspicious mass, asymmetry, microcalcification, or other abnormality seen. IMPRESSION: * No evidence of malignancy. RECOMMENDATIONS Bilateral * Annual screening mammography. OVERALL ASSESSMENT CATEGORY BI-RADS-1: Negative. [employer] recommends annual screening mammography beginning at age 40 for women with average risk of breast cancer. ELECTRONICALLY SIGNED: Birgit Claros M.D. on 11/20/2025 at 09:32:43 AM PT Interpreting Station ID: [id number]
== END ==
PROVIDERS: PCP Physician Assistant; Referring Provider Physician Assistant; Visit Provider Physician Assistant
DX: Z12.31 Encounter for screening mammogram for malignant neoplasm of breast (principal); R92.333 Mammographic heterogeneous density, bilateral breasts
CPT/HCPCS: 77063; 77067